=== PATIENT | female | born 1990 | race Caucasian/White ===

== ENCOUNTER 2019-10-05 20:43 | Emergency (ER) | payer MEDICAID ==
[~2019-10-05] VITALS: Ht 165.1 cm; Wt 20.9 kg
[2019-10-05 21:30] VITALS: BP 141/98
--- NOTE | 2019-10-05 21:30 | NUR ---
PT 29 Y/O FEMALE BIB SELF FOR C/O L SIDE TOOTH PAIN X 2 WEEKS. PT STATES "MY TOOTH BROKE 2 WEEKS AGO" AND HAS C/O 8/10 PAIN THAT IS SHARP AND CONTINOUS AND RADIATES TO L SIDE OF FACE. PT STATES DENTIS APPOINTMENT IS LATER ON THIS MONTH BUT "PAIN IS UNBREABLE." PT DENIES COUGH, SOB. DENIES N/V/D. RESPIRATIONS ARE EVEN AND UNLABORED. VSS. MEDHX: NONE ALLERGIES: NKA
--- NOTE | 2019-10-05 21:30 | NUR ---
PT TAKEN TO BED 4 WITH STEADY GAIT.
[2019-10-05] MEDS ORDERED: KETOROLAC 60 MG/2 ML VIAL IM ONE (21:45)
[2019-10-05 22:50] VITALS: BP 141/98
--- NOTE | 2019-10-05 22:50 | NUR ---
Patient discharged with v/s stable. Written and verbal after care instructions given and explained. Patient alert, oriented and verbalized understanding of instructions. Ambulatory with steady gait. All questions addressed prior to discharge. ID band removed. Patient advised to follow up with PMD. Rx of PENICILLIN, MOTRIN, NORCO given. Patient educated on indication of medication including possible reaction and side effects. Opportunity to ask questions provided and answered.
== END 2019-10-05 22:50 | disposition home or self-care (01) ==
LOC: MED 20:43
DX: K08.89 Other specified disorders of teeth and supporting structures (principal); F17.210 Nicotine dependence, cigarettes, uncomplicated; K04.7 Periapical abscess without sinus
CPT/HCPCS: 96372; 99283; J1885

== ENCOUNTER 2019-12-05 21:45 | Emergency (ER) | payer MEDICAID ==
[~2019-12-05] VITALS: Ht 167.6 cm; Wt 67.1 kg
[2019-12-05 21:55] VITALS: BP 145/94
--- NOTE | 2019-12-05 22:13 | NUR ---
PT C/O SORENESS/PAIN TO TIP OF RIGHT MIDDLE FINGER X 1 DAY. DENIES ANY INJURY. AREA IS SWOLLEN AND RED AROUND NAIL BED AND PAD OF FINGER LOOKS BRUISED. PAINFUL TO TOUCH. CAP REFILL < 3 SECS. BED IN LOWEST POSITION AND SIDERAIL UP X 1. NKA NO MED HX
[2019-12-05 22:40] VITALS: BP 145/94
--- NOTE | 2019-12-05 22:41 | NUR ---
Patient discharged with v/s stable. Written and verbal after care instructions given and explained. Patient alert, oriented and verbalized understanding of instructions. Ambulatory with steady gait. All questions addressed prior to discharge. ID band removed. Patient advised to follow up with PMD. Rx of KEFLEX AND MOTRIN given. Patient educated on indication of medication including possible reaction and side effects. Opportunity to ask questions provided and answered.
== END 2019-12-05 21:55 | disposition home or self-care (01) ==
LOC: MED 21:45
DX: L03.011 Cellulitis of right finger (principal); F17.210 Nicotine dependence, cigarettes, uncomplicated
CPT/HCPCS: 99283